=== PATIENT | female | born 1980 | race Caucasian/White ===

== ENCOUNTER 2020-12-12 18:51 | Inpatient (IN) | payer OTHER ==
[~2020-12-12] VITALS: Ht 167.6 cm; Wt 68.5 kg
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
--- NOTE | ~2020-12-12 | H ---
[facility] [address] [address] HISTORY AND PHYSICAL Name: CHRIS WEEMS Room #: 443-P ADM IN M.R.#: [id number] Admission: 12/12/20 Attend Phys: Levi Flores MD Discharge: Date of : 78 Report #: [id number] THIS REPORT FOR: cc: FAM - Family physician unknown FAM - Family physician unknown Fernandez Vargas DPM ~ DATE OF SERVICE: 12/12/2020 INTRODUCTION This is a 40-year-old female admitted to [facility] for right DFU. HISTORY OF PRESENT ILLNESS: This is a 40-year-old white female diabetic with a previous BKA, left foot, now with a right diabetic foot ulcer, it has been presenting for the last two to three days. The patient says she hurt her ankle and started wearing a boot. Shortly after wearing the boot, she noticed a wound to the plantar aspect of her right foot plantarly. PAST MEDICAL HISTORY: Noted for hypertension, hyperlipidemia, diabetic type 2, COPD, CHF, Graves' disease, neuropathy, stroke x 2, renal disease stage 3, previous left BKA, hypothyroidism. MEDICATIONS: Aspirin, levothyroxine, isosorbide, amlodipine, metoprolol, atorvastatin, hydroxyzine, insulin lispro. ALLERGIES: No known drug allergies. FAMILY HISTORY: Noncontributory. SOCIAL HISTORY: No history of alcohol. PHYSICAL EXAMINATION: EXTREMITIES: Upper extremities have been worked up by the ER physician and hospitalist. Lower extremities show she has a wound about the size of a half dollar in the plantar aspect of the right foot near the first MPJ, it is a slight central area with necrotic tissue about 2 cm in diameter, but is very superficial, appeared to be a previous blister with good healthy tissue in the surrounding area. No significant erythema, no significant edema. There is no tunneling or undermining noticed. She has a weak dorsalis pedis and a weak posterior tibial artery. IMAGING: X-rays unremarkable. LABORATORY DATA: White blood cell count is normal and her blood sugars are around 120. [address] [address] HISTORY AND PHYSICAL Name: CHRIS WEEMS Room #: 443-P [facility] IN [facility]#: [id number] Admission: 12/12/20 Attend Phys: Levi Flores MD Discharge: Date of : 78 Report #: [id number] ASSESSMENT AND PLAN: The patient has diabetic foot ulcer, Robles grade II. Plan is for local care. No need for an I and D. The patient will get a bulky dressing on this with alginate or foam dressing and then a bulky Kerlix. We will get a wound care shoe for her. She will follow up with the wound care physician with Dr. Lim or Dr. Hollins and also get a noninvasive arterial Doppler exam and consult Dr. Gage, Interventional Radiology. The patient had talked about this at length. She has my number to call if any concerns arise. By: [id number] Fernandez Vargas, APRIL /nt
--- NOTE | ~2020-12-12 | HC ---
[facility] [address] [address] CONSULTATION Name: CHRIS WEEMS Room #: 443-P ADM IN M.R.#: [id number] Admission: 12/12/20 Attend Phys: Rivas Young MD Discharge: Date of : 78 Report #: [id number] THIS REPORT FOR: cc: FAM - Family physician unknown FAM - Family physician unknown Wm Hollins MD ~ DATE OF SERVICE: 12/14/2020 CHIEF COMPLAINT: Diabetic foot ulceration. HISTORY OF PRESENT ILLNESS: This is a 40-year-old female patient who was admitted through the Emergency Department on 12/12/2020. She has a previous left above-knee amputation and has had an ulceration to her right foot. She was seen initially by Dr. Vargas, who did not feel surgical intervention was appropriate, but did consult Interventional Radiology for possible peripheral vascular disease. She has been seen and is scheduled for angiogram today. She complains of some pain and drainage in her left foot, states that it began as a small black spot and then became somewhat enlarged. PAST MEDICAL HISTORY: Positive for previous above-knee amputation on the left. She has a past medical history also of anemia, cellulitis, type 1 diabetes, hypertension, hyperlipidemia, COPD, Graves' disease, congestive heart failure, peripheral neuropathy, previous stroke, chronic kidney disease stage III. SOCIAL HISTORY: The patient is a "light tobacco smoker." No alcohol use. FAMILY HISTORY: Noncontributory. MEDICATIONS: Include metoprolol, Lexapro, aspirin, hydrocodone, Imdur, Norvasc, Lopressor, Lipitor, hydroxyzine and Lantus insulin. ALLERGIES: No known drug allergies. REVIEW OF SYSTEMS: CONSTITUTIONAL: The patient denies fever, chills, weight loss. NEUROLOGICAL: The patient does have peripheral neuropathy. Denies focal weakness, numbness or tingling. EYES: The patient denies visual changes, redness, drainage. ENT: The patient denies earache, nasal drainage or sore throat.. CARDIOVASCULAR: The patient denies chest pain, palpitations or diaphoresis. PULMONARY: The patient denies cough or shortness of breath. GASTROINTESTINAL: The patient denies nausea, vomiting, diarrhea or abdominal pain. ORTHOPEDIC: The patient has a slightly painful ulcer on her right foot plantar. Others systems in a 14-point review of systems are negative. [address] [address] CONSULTATION Name: CHRIS WEEMS Room #: 443-P [facility] IN .R.#: [id number] Admission: 12/12/20 Attend Phys: Rivas Young MD Discharge: Date of : 78 Report #: [id number] PHYSICAL EXAMINATION: VITAL SIGNS: Include temperature 36.7, pulse 67, respiration of 16, blood pressure 122/77. GENERAL: This is a somewhat chronically ill-appearing female patient who appears to be in minimal distress. HEENT: Head normocephalic. Nose and throat clear. NECK: Supple. LUNGS: Clear. ABDOMEN: Soft, bowel sounds present. EXTREMITIES: Lower extremities demonstrate diminished distal pulses. She has a plantar ulcer on the plantar aspect of the right foot at the MTP. There is some eschar, some surrounding granulation tissue, small amount of drainage noted. NEUROLOGIC: The patient is alert and moving all 4 extremities spontaneously. LABORATORY DATA: Include white blood cell count 8000 with a hematocrit 33.4. Sodium 139, potassium 3.9, chloride 108, CO2 of 23, BUN 31, creatinine 1.3, glucose 236. CLINICAL IMPRESSION: 1. Robles grade 2 diabetic ulceration to the right foot. 2. Type 1 diabetes mellitus, poorly controlled. 3. Chronic kidney disease. 4. Prior left below-knee amputation. 5. Peripheral vascular disease by clinical exam. RECOMMENDATIONS: At this point, I recommend Aquacel AG, ABD, Kerlix and tape. I am reluctant to debride at this point in time, not wishing to get into the fat layer. It is not overtly infected. We will recommend topical silver alginate, ABD and Kerlix for now, offloading as much as possible. Podiatry is seeing her as well. She was having an angiogram today hopefully with improved blood flow. Continue with medical management of her other underlying medical issues. I appreciate being asked to see her in consultation. By: [id number] Wm Hollins MD /nt
[2020-12-12 19:12] VITALS: BP 156/84
[2020-12-12 20:11] LABS: BASOPHILS 0.5 % (0.0-2.0); EOSINOPHILS 3.5 % (0.0-3.0); HEMATOCRIT 33.4 % (37.0-47.0); HEMOGLOBIN 10.9 gm/dL (12.0-15.0); LYMPHOCYTES 27.6 % (24.0-44.0); MCH 29.2 pg (26.0-34.0); MCHC 32.5 g/dL (28.0-37.0); MCV 89.8 fL (80.0-100.0); MONOCYTES 6.1 % (1.0-8.0); PLATELET COUNT 359 thou/uL (150-400); POLYS 62.3 % (36.0-66.0); RBC 3.72 mil/uL (4.20-5.00); RDW 13.6 % (10.5-14.5)
[2020-12-12 20:24] LABS: CALCIUM 8.1 mg/dL (8.5-10.1); CREATININE 1.5 mg/dL (0.6-1.0); POTASSIUM 5.2 mmol/L (3.5-5.1)
[2020-12-12] MEDS ORDERED: ASA81BEC PO ×2 (20:26→23:00)
[2020-12-12] MEDS ORDERED: LEVO-T25 MCG PO (20:26)
[2020-12-12] MEDS ORDERED: IMDUR 30 MG TAB30 M1 PO (20:27)
[2020-12-12] MEDS ORDERED: NORVASC10 MG PO (20:28)
[2020-12-12] MEDS ORDERED: LOPRESSOR50 MG PO (20:29)
[2020-12-12] MEDS ORDERED: LIPITOR 20 MG T20 M1 PO (20:29)
[2020-12-12] MEDS ORDERED: HYDROXYZINE HCL25 M2 PO (20:30)
[2020-12-12 20:31] LABS: ALBUMIN 2.9 g/dL (3.4-5.0); TOTAL BILIRUBIN 0.2 mg/dL (0.2-1.0); TOTAL PROTEIN 7.2 g/dL (6.4-8.2)
[2020-12-12] MEDS ORDERED: INSULIN LI100 UNIT/1 SUBQ ×2 (20:32→20:33)
[2020-12-12] MEDS ORDERED: LANTUS100 UNIT/M SUBQ (20:34)
[2020-12-12 22:43] VITALS: BP 159/90
[2020-12-12 22:57] VITALS: BP 155/92
[2020-12-12] MEDS ORDERED: METOPROLOL TART25 MG PO (22:59)
[2020-12-12] MEDS ORDERED: NORCO5 PO (23:00)
[2020-12-12] MEDS ORDERED: LEXAPRO5 MG PO (23:00)
[2020-12-13 04:09] VITALS: BP 114/64
[2020-12-13 06:29] LABS: ANION GAP 8 mmol/L (7-16); BUN 31 mg/dL (7-18); CALCIUM 7.8 mg/dL (8.5-10.1); CHLORIDE 108 mmol/L (98-107); CHOLESTEROL 95 mg/dL (<200); CO2 23 mmol/L (21-32); CREATININE 1.3 mg/dL (0.6-1.0); GLUCOSE 236 mg/dL (74-106); HDL CHOLESTEROL 33 mg/dL (>40); LDL CHOLESTEROL 35 mg/dL (<100); SODIUM 139 mmol/L (136-145); TC:HDL 2.9 Ratio (Not establshd); TRIGLYCERIDE 138 mg/dL (<150); VLDL 28 mg/dL (<40)
[2020-12-13 06:33] LABS: POTASSIUM 3.9 mmol/L (3.5-5.1)
[2020-12-13 06:34] LABS: SERUM ASSESSMENT Clear
[2020-12-13 07:29] VITALS: BP 122/71
[2020-12-13 16:00] VITALS: BP 135/66
[2020-12-13 20:31] VITALS: BP 146/84
[2020-12-14 04:05] LABS: GLYCOHEMOGLOBIN (HGB A1C) 12.8 % (4.8-5.6)
[2020-12-14 05:25] VITALS: BP 133/76
[2020-12-14 07:41] VITALS: BP 143/82
[2020-12-14 11:44] VITALS: BP 122/77
[2020-12-14 19:40] VITALS: BP 129/83
[2020-12-15 04:47] VITALS: BP 134/75
[2020-12-15 07:23] LABS: CREATININE 1.2 mg/dL (0.6-1.0)
[2020-12-15 07:47] VITALS: BP 163/94
[2020-12-15 16:47] VITALS: BP 136/83
[2020-12-15 19:09] VITALS: BP 127/75
[2020-12-16 04:41] VITALS: BP 152/89
[2020-12-16 07:46] VITALS: BP 139/80
[2020-12-16 20:27] VITALS: BP 153/90
[2020-12-17 07:30] VITALS: BP 151/85
[2020-12-17 09:42] LABS: HEMATOCRIT 34.9 % (37.0-47.0); HEMOGLOBIN 11.3 gm/dL (12.0-15.0); MCH 28.7 pg (26.0-34.0); MCHC 32.3 g/dL (28.0-37.0); MCV 88.8 fL (80.0-100.0); RBC 3.93 mil/uL (4.20-5.00); RDW 13.7 % (10.5-14.5); WBC 5.9 thou/uL (4.0-11.0)
[2020-12-17 09:50] LABS: CALCIUM 8.5 mg/dL (8.5-10.1); CREATININE 1.2 mg/dL (0.6-1.0); POTASSIUM 4.8 mmol/L (3.5-5.1)
[2020-12-17 17:00] VITALS: BP 163/93
[2020-12-17 19:11] VITALS: BP 161/92
[2020-12-18 03:46] VITALS: BP 129/76
[2020-12-18 04:44] LABS: CALCIUM 8.1 mg/dL (8.5-10.1); CREATININE 1.3 mg/dL (0.6-1.0); POTASSIUM 4.3 mmol/L (3.5-5.1)
[2020-12-18 05:03] LABS: HEMATOCRIT 30.9 % (37.0-47.0); HEMOGLOBIN 10.5 gm/dL (12.0-15.0); MCHC 33.8 g/dL (28.0-37.0); MCV 88.6 fL (80.0-100.0); RBC 3.49 mil/uL (4.20-5.00); RDW 13.9 % (10.5-14.5); WBC 6.8 thou/uL (4.0-11.0)
[2020-12-18 07:11] VITALS: BP 132/83
[2020-12-18] MEDS ORDERED: CLOPIDOGREL75 MG PO ×2 (12:22→13:14)
[2020-12-18] MEDS ORDERED: BACTRIM DS TAB1 EACH PO ×2 (12:22→13:14)
[2020-12-18 12:42] VITALS: BP 132/83
[2020-12-18 12:48] VITALS: BP 132/83
[2020-12-18 13:36] VITALS: BP 132/83
[2020-12-18 16:43] VITALS: BP 141/81
== END 2020-12-18 18:34 | disposition home health service (06) | DRG 629 ==
LOC: ER 18:51 → 4S 21:47 → EROBS 21:47 → 4S 22:44
PROVIDERS: Hospitalist; Nurse Practitioner; Nurse Practitioner Family; ADMIT Internal Medicine; ATTEND Internal Medicine
PROC: 047K3DZ Dilation of Right Femoral Artery with Intraluminal Device, Percutaneous Approach (ICD-10-PCS; principal; 2020-12-14)
PROC: B4181ZZ Fluoroscopy of Bilateral Renal Arteries using Low Osmolar Contrast (ICD-10-PCS; principal; 2020-12-14)
PROC: B41D1ZZ Fluoroscopy of Aorta and Bilateral Lower Extremity Arteries using Low Osmolar Contrast (ICD-10-PCS; principal; 2020-12-14)
PROC: 04CK3ZZ Extirpation of Matter from Right Femoral Artery, Percutaneous Approach (ICD-10-PCS; principal; 2020-12-14)
PROC: 04CM3ZZ Extirpation of Matter from Right Popliteal Artery, Percutaneous Approach (ICD-10-PCS; principal; 2020-12-14)
PROC: 047M3Z1 Dilation of Right Popliteal Artery using Drug-Coated Balloon, Percutaneous Approach (ICD-10-PCS; principal; 2020-12-14)
DX: E10.621 Type 1 diabetes mellitus with foot ulcer (principal); L03.115 Cellulitis of right lower limb; E44.0 Moderate protein-calorie malnutrition; I13.0 Hypertensive heart and chronic kidney disease with heart failure and stage 1 through stage 4 chronic kidney disease, or unspecified chronic kidney disease; E10.51 Type 1 diabetes mellitus with diabetic peripheral angiopathy without gangrene; N17.9 Acute kidney failure, unspecified; E78.5 Hyperlipidemia, unspecified; I50.9 Heart failure, unspecified; J44.9 Chronic obstructive pulmonary disease, unspecified; N18.32 Chronic kidney disease, stage 3b; E03.9 Hypothyroidism, unspecified; E10.42 Type 1 diabetes mellitus with diabetic polyneuropathy; E10.22 Type 1 diabetes mellitus with diabetic chronic kidney disease; E10.65 Type 1 diabetes mellitus with hyperglycemia; R53.81 Other malaise; Z68.24 Body mass index [BMI] 24.0-24.9, adult; S80.811A Abrasion, right lower leg, initial encounter; X58.XXXA Exposure to other specified factors, initial encounter; Z79.4 Long term (current) use of insulin; Z89.511 Acquired absence of right leg below knee; Z86.73 Personal history of transient ischemic attack (TIA), and cerebral infarction without residual deficits; Y93.89 Activity, other specified; Y92.89 Other specified places as the place of occurrence of the external cause; Y99.8 Other external cause status
CPT/HCPCS: 10195